=== PATIENT | female | born 1935 | race Caucasian/White ===

== ENCOUNTER 2019-01-10 13:33 | Inpatient (IN) | payer OTHER ==
[~2019-01-10] VITALS: Ht 147.3 cm; Wt 57.4 kg
[2019-01-10] MEDS ORDERED: PLEASE ENTER ALLERGIES MC SCH (14:00)
[2019-01-10] MEDS ORDERED: PLEASE ENTER HEIGHT AND WEIGHT MC SCH (14:00)
[2019-01-10] MEDS ORDERED: ALBUTEROL/IPRATROPIUM 2.5MG/0.5MG, 3 ML NPPB PRN ×2 (14:00→14:30)
[2019-01-10] MEDS ORDERED: SODIUM CHLORIDE FLUSH 10ML SYR IVF ONE (14:00)
[2019-01-10] MEDS ORDERED: ALBUTEROL/IPRATROPIUM 2.5MG/0.5MG, 3 ML ONE (14:01)
[2019-01-10 14:17] LABS: ALANINE AMINOTRANSFERASE 19 U/L (12-78); ALBUMIN 3.7 g/dL (3.4-5.0); ANION GAP 6 mmol/L (5-15); CALCIUM 9.2 mg/dL (8.5-10.1); CHLORIDE 101 mmol/L (98-107)
[2019-01-10 14:22] LABS: ALKALINE PHOSPHATASE 86 U/L (45-117); BILIRUBIN,TOTAL 0.4 mg/dL (0.2-1.0); CREATININE 0.64 mg/dL (0.55-1.02); TOTAL PROTEIN 7.7 g/dL (6.4-8.2); TROPONIN I 0.089 ng/mL (0.000-0.045)
[2019-01-10 14:29] LABS: MD YES; MEAN CORPUSCULAR HEMOGLOBIN 24.2 pg (27.0-34.8); MEAN CORPUSCULAR HGB CONC 31.1 g/dL (32.4-35.8); MEAN CORPUSCULAR VOLUME 77.8 fL (80-100); MEAN PLATELET VOLUME 9.4 fL (7.4-10.4); PLATELET COUNT 326 x10^3/uL (130-400); RED BLOOD COUNT 4.52 x10^6/uL (3.82-5.3); RED CELL DISTRIBUTION WIDTH 22.6 % (9.6-15.2)
[2019-01-10 14:31] LABS: BASOS#(MANUAL) 0.08 x10^3/uL (0-0.1); BASOS% (MANUAL) 1 % (0-1); EOS#(MANUAL) 0.08 x10^3/uL (0.0-0.4); EOS% (MANUAL) 1 % (1-7); LYMPH#(MANUAL) 1.54 x10^3/uL (1-3.4); LYMPHS% (MANUAL) 20 % (22-44); MONOS#(MANUAL) 0.62 x10^3/uL (0.3-2.7); MONOS% (MANUAL) 8 % (2-9); SEG#(MANUAL) 5.39 x10^3/uL (1.8-6.8); SEGS% (MANUAL) 70 % (42-75)
[2019-01-10 14:36] LABS: ANISOCYTOSIS 2+
[2019-01-10 14:37] LABS: OVALOCYTES 1+
[2019-01-10 14:38] LABS: <PLATELET ESTIMATE> ADEQUATE; <PLT MORPHOLOGY> NORMAL PLT MORPH; HYPOCHROMIA 1+; MICROCYTOSIS 1+
[2019-01-10] MEDS ORDERED: AZITHROMYCIN 500 MG in SODIUM CHLORIDE 0.9% 250 ML IVPB ONE (15:00)
[2019-01-10] MEDS ORDERED: SODIUM CHLORIDE FLUSH 10ML SYR IVF PRN (15:00)
[2019-01-10] MEDS ORDERED: CEFTRIAXONE PMX 1GM/50ML 50 ML IVPB ONE (15:00)
--- NOTE | 2019-01-10 15:09 | NUR ---
PT WITH CORRECTIONTONY GRECO AT [facility] REFUSED TRANSFER
[2019-01-10] MEDS ORDERED: CLON0.5T11 PO (15:26)
[2019-01-10] MEDS ORDERED: SERT25TA3 PO ×2 (15:27→16:42)
--- NOTE | 2019-01-10 15:27 | NUR ---
PT UNABLE TO RECALL MEDS AT THIS TIME
[2019-01-10] MEDS ORDERED: CEFTRIAXONE PMX 1GM/50ML 50 ML ONE (15:30)
--- NOTE | 2019-01-10 15:36 | NUR ---
ROCEPHIN INFUSING, BLOOD CX'S DRAWN PRIOR TO ABX.
[2019-01-10 16:10] VITALS: BP 139/81
[2019-01-10] MEDS ORDERED: CLON0.25 PO (16:42)
[2019-01-10] MEDS ORDERED: PRED5TAB PO (16:42)
[2019-01-10] MEDS ORDERED: OMEP40CA6 PO (16:42)
[2019-01-10] MEDS ORDERED: ATOR40TA PO (16:42)
[2019-01-10] MEDS ORDERED: ENALAPRILAT 1.25 MG/ML, 2ML IVPush PRN (17:00)
[2019-01-10] MEDS ORDERED: LABETALOL 5MG/ML, 20ML IVPush PRN (17:00)
[2019-01-10] MEDS ORDERED: ONDANSETRON 2MG/ML, 2ML IVPush PRN (17:00)
[2019-01-10] MEDS ORDERED: BISACODYL 10 MG SUPP PR PRN (17:00)
[2019-01-10] MEDS ORDERED: POLYETHYLENE GLYCOL 17 GM PACKET PO PRN (17:00)
[2019-01-10] MEDS ORDERED: DOCUSATE 100 MG CAPSULE PO PRN (17:00)
[2019-01-10] MEDS ORDERED: ACETAMINOPHEN 325 MG TABLET PO PRN (17:00)
[2019-01-10] MEDS ORDERED: ONDANSETRON ODT 4 MG PO PRN (17:00)
[2019-01-10] MEDS: methylPREDNISolone SOD SUCC 125 MG/2 ML IVPush SCH ×2 (18:16→23:32)
[2019-01-10] MEDS: ENOXAPARIN 40 MG/0.4 ML SQ SCH (18:16)
[2019-01-10 18:23] LABS: TROPONIN I 0.202 ng/mL (0.000-0.045)
[2019-01-10] MEDS: ALBUTEROL/IPRATROPIUM 2.5MG/0.5MG, 3 ML NPPB SCH ×2 (19:00→23:00)
[2019-01-10] MEDS: FERROUS GLUCONATE 324 MG TABLET PO SCH (19:56)
[2019-01-10] MEDS: AZITHROMYCIN 500 MG in SODIUM CHLORIDE 0.9% 250 ML IV SCH (19:56)
[2019-01-10] MEDS: NS + 20MEQ KCL 1,000 ML IV SCH (19:56)
[2019-01-10] MEDS: OMEPRAZOLE 20 MG CAPSULE.DR PO SCH (19:56)
[2019-01-10] MEDS: ATORVASTATIN 40 MG TABLET PO SCH (19:56)
[2019-01-10 20:02] VITALS: BP 97/60
[2019-01-10 20:17] VITALS: BP 116/73
[2019-01-10 21:12] VITALS: BP 119/80
[2019-01-11 00:14] LABS: TROPONIN I 0.175 ng/mL (0.000-0.045)
[2019-01-11] MEDS ORDERED: ALBUTEROL/IPRATROPIUM 2.5MG/0.5MG, 3 ML NPPB PRN (01:30)
[2019-01-11] MEDS: ALBUTEROL/IPRATROPIUM 2.5MG/0.5MG, 3 ML NPPB SCH ×4 (02:11→20:23)
[2019-01-11 03:59] VITALS: BP 131/79
[2019-01-11] MEDS: methylPREDNISolone SOD SUCC 125 MG/2 ML IVPush SCH ×3 (05:21→18:23)
[2019-01-11 05:26] LABS: ANION GAP 7 mmol/L (5-15); CHLORIDE 107 mmol/L (98-107); CREATININE 0.67 mg/dL (0.55-1.02); MEAN CORPUSCULAR HGB CONC 31.2 g/dL (32.4-35.8); MEAN CORPUSCULAR VOLUME 77.1 fL (80-100); MEAN PLATELET VOLUME 9.6 fL (7.4-10.4); PLATELET COUNT 351 x10^3/uL (130-400); RED BLOOD COUNT 4.54 x10^6/uL (3.82-5.3); RED CELL DISTRIBUTION WIDTH 22.9 % (9.6-15.2)
[2019-01-11 05:36] LABS: THYROID STIMULATING HORMONE 0.392 mIU/L (0.358-3.740)
[2019-01-11 05:57] LABS: ANISOCYTOSIS 2+; BASOPHILS % (AUTO) 0 % (0-1); EOSINOPHILS % (AUTO) 0 % (1-7); LYMPHOCYTES # (AUTO) 0.51 x10^3/uL (1-3.4); LYMPHOCYTES % (AUTO) 12 % (22-44); MD MORPH REVIEW ONLY; MICROCYTOSIS 2+; MONOCYTES # (AUTO) 0.04 x10^3/uL (0.2-0.8); MONOCYTES % (AUTO) 1 % (2-9); NEUTROPHILS % (AUTO) 88 % (42-75); OVALOCYTES 1+
[2019-01-11 06:00] LABS: <PLATELET ESTIMATE> ADEQUATE; <PLT MORPHOLOGY> NORMAL PLT MORPH
[2019-01-11 07:06] VITALS: BP 129/79
[2019-01-11] MEDS: SERTRALINE 50MG TABLET PO SCH (07:28)
[2019-01-11] MEDS: NS + 20MEQ KCL 1,000 ML IV SCH (08:01)
[2019-01-11] MEDS: FERROUS GLUCONATE 324 MG TABLET PO SCH ×3 (08:01→18:24)
[2019-01-11] MEDS ORDERED: BUDESONIDE 0.5 MG/2 ML INHA NPPB SCH (09:00)
[2019-01-11 13:45] VITALS: BP 104/58
[2019-01-11] MEDS: CEFTRIAXONE PMX 1GM/50ML 50 ML IV SCH (16:11)
[2019-01-11] MEDS: ENOXAPARIN 40 MG/0.4 ML SQ SCH (18:24)
[2019-01-11 19:50] VITALS: BP 106/61
[2019-01-11] MEDS: AZITHROMYCIN 500 MG in SODIUM CHLORIDE 0.9% 250 ML IV SCH (20:05)
[2019-01-11] MEDS: OMEPRAZOLE 20 MG CAPSULE.DR PO SCH (20:08)
[2019-01-11] MEDS: ATORVASTATIN 40 MG TABLET PO SCH (20:08)
[2019-01-12] MEDS: methylPREDNISolone SOD SUCC 125 MG/2 ML IVPush SCH ×3 (01:19→12:40)
[2019-01-12] MEDS: NS + 20MEQ KCL 1,000 ML IV SCH ×2 (01:19→12:40)
[2019-01-12 01:26] VITALS: BP 111/65
[2019-01-12] MEDS: ALBUTEROL/IPRATROPIUM 2.5MG/0.5MG, 3 ML NPPB SCH ×3 (02:31→14:19)
[2019-01-12 07:15] VITALS: BP 144/74
[2019-01-12] MEDS: FERROUS GLUCONATE 324 MG TABLET PO SCH ×2 (08:53→12:40)
[2019-01-12] MEDS: SERTRALINE 50MG TABLET PO SCH (08:53)
[2019-01-12] MEDS ORDERED: CEFD300C37 PO (13:50)
[2019-01-12] MEDS ORDERED: FERR325T16 PO (13:50)
[2019-01-12] MEDS ORDERED: METH4TAB2 PO (13:50)
[2019-01-12 14:00] VITALS: BP 121/68
[2019-01-12] MEDS: CEFTRIAXONE PMX 1GM/50ML 50 ML IV SCH (14:33)
[2019-01-12] MEDS: AZITHROMYCIN 500 MG in SODIUM CHLORIDE 0.9% 250 ML IV SCH (15:52)
== END 2019-01-12 17:16 | disposition home or self-care (01) | DRG 193 ==
LOC: ED 14:52 → EDIP 16:45 → 4EST 17:33
PROVIDERS: ADMIT Internal Medicine; ATTEND Internal Medicine
DX: J18.9 Pneumonia, unspecified organism (principal); J96.21 Acute and chronic respiratory failure with hypoxia; I24.8 Other forms of acute ischemic heart disease; J44.0 Chronic obstructive pulmonary disease with (acute) lower respiratory infection; J44.1 Chronic obstructive pulmonary disease with (acute) exacerbation; Z88.8 Allergy status to other drugs, medicaments and biological substances; D50.9 Iron deficiency anemia, unspecified; F41.9 Anxiety disorder, unspecified; I10 Essential (primary) hypertension; I25.10 Atherosclerotic heart disease of native coronary artery without angina pectoris; I25.2 Old myocardial infarction; I34.0 Nonrheumatic mitral (valve) insufficiency; I49.3 Ventricular premature depolarization; K59.09 Other constipation; Z66 Do not resuscitate; Z82.5 Family history of asthma and other chronic lower respiratory diseases; Z87.11 Personal history of peptic ulcer disease; Z87.891 Personal history of nicotine dependence; Z87.892 Personal history of anaphylaxis; Z90.710 Acquired absence of both cervix and uterus; Z91.19 Patient's noncompliance with other medical treatment and regimen; Z95.5 Presence of coronary angioplasty implant and graft; Z96.643 Presence of artificial hip joint, bilateral; Z99.81 Dependence on supplemental oxygen
CPT/HCPCS: 36415; 71045; 80048; 80053; 83605; 83735; 83880; 84100; 84145; 84443; 84484; 85025; 86850; 86900; 87040; 93005; 93306; 94640; G0378; J0456; J0696; J1650; J3480; J7620; J7626; J2930; J7050